=== PATIENT | female | born 1960 | race Caucasian/White ===

== ENCOUNTER 2017-12-25 13:20 | Outpatient (CLI) | END 2017-12-25 13:21 | disposition home or self-care (01) | LOC: FCC-LAB 13:20 | PROVIDERS: ATTEND Nurse Practitioner Family | DX: R11.0 Nausea (principal); R10.32 Left lower quadrant pain; Z79.899 Other long term (current) drug therapy | CPT/HCPCS: 36415; 80053; 80061; 81001; 84439; 84443; 85025 ==

== ENCOUNTER 2017-12-27 13:16 | Outpatient (CLI) ==
--- NOTE | 2017-12-27 13:57 | DI ---
EXAM: Radiographs, abdomen HISTORY: Left lower quadrant pain. COMPARISON: None available. TECHNIQUE: Supine and upright views. FINDINGS: Air and stool noted throughout the colon, including the rectum. No dilated bowel loops ar e seen. No air-fluid levels or free air identified. Clips seen in the right upper abdomen. Phlebol iths noted in the pelvis. Lung bases are clear. No acute osseous abnormality identified. IMPRESSION: No acute radiographic abnormality of the abdomen.
== END 2017-12-27 13:17 | disposition home or self-care (01) ==
LOC: RAD 13:16
PROVIDERS: ATTEND Nurse Practitioner Family
DX: R10.32 Left lower quadrant pain (principal)

== ENCOUNTER 2017-12-31 10:02 | Outpatient (CLI) | END 2017-12-31 10:03 | disposition home or self-care (01) | LOC: RAD 10:02 | PROVIDERS: ATTEND Nurse Practitioner Family | DX: Z12.31 Encounter for screening mammogram for malignant neoplasm of breast (principal) | CPT/HCPCS: 77067 ==

== ENCOUNTER 2018-01-02 09:22 | Outpatient (CLI) ==
--- NOTE | 2018-01-02 10:36 | US ---
EXAM: Thyroid ultrasound History: Thyroid disease, thyroid nodules. Technique: Multiple sonographic images through the thyroid gland were obtained. Color duplex Dopple r was used to interrogate vascular flow. Findings: The right lobe of the thyroid measures 3.6 cm x 1.2 cm x 1.0 cm and demonstrates the 2 mm benign cyst . The thyroid isthmus measures 0.2 cm in thickness. The left lobe of the thyroid measures 3.1 cm x 1.1 cm x 0.7 cm and demonstrates the 0.8 cm complex no dule. No extrathyroidal masses are identified. Thyroid gland is not hypervascular. Impression: Bilateral thyroid nodules. Recommend follow-up ultrasound in 6 months.
== END 2018-01-02 09:23 | disposition home or self-care (01) ==
LOC: RAD 09:22
PROVIDERS: ATTEND Nurse Practitioner Family
DX: Z86.39 Personal history of other endocrine, nutritional and metabolic disease (principal)

== ENCOUNTER 2018-01-17 11:47 | Outpatient (CLI) ==
--- NOTE | 2018-01-17 13:37 | DI ---
EXAM: Three views of the right shoulder. History: Right shoulder pain. Findings: No acute fracture or dislocation. No abnormal calcifications or radiopaque foreign bodies . Joint spaces are preserved. Impression: No acute osseous abnormality.
== END 2018-01-17 11:48 | disposition home or self-care (01) ==
LOC: RAD 11:47
PROVIDERS: ATTEND Nurse Practitioner Family
DX: M25.50 Pain in unspecified joint (principal); M25.511 Pain in right shoulder; T14.90XA Injury, unspecified, initial encounter; W57.XXXA Bitten or stung by nonvenomous insect and other nonvenomous arthropods, initial encounter
CPT/HCPCS: 36415; 84439; 84443; 86038; 86430; 86617; 86664; 86757; 87798

== ENCOUNTER 2018-02-04 10:46 | Outpatient (CLI) | END 2018-02-04 10:47 | disposition home or self-care (01) | LOC: FCC-LAB 10:46 | PROVIDERS: ATTEND Nurse Practitioner Family | DX: E03.9 Hypothyroidism, unspecified (principal) | CPT/HCPCS: 36415; 84439; 84443 ==

== ENCOUNTER 2018-03-17 10:41 | Outpatient (CLI) | END 2018-03-17 10:42 | disposition home or self-care (01) | LOC: FCC-LAB 10:41 | PROVIDERS: ATTEND Nurse Practitioner Family | DX: E03.9 Hypothyroidism, unspecified (principal) | CPT/HCPCS: 36415; 84439; 84443 ==

== ENCOUNTER 2018-03-24 11:40 | Outpatient (CLI) ==
--- NOTE | 2018-03-24 14:48 | DI ---
EXAM: Three views of the right foot HISTORY: Right foot pain. COMPARISON: None FINDINGS: There is no lytic or blastic lesion. There is a plantar are heal spur measuring 0.5 cm. J oint spaces are unremarkable. There is degenerative disease of the first MTP joint. There is no lyt ic or blastic lesion. The soft tissues are unremarkable. IMPRESSION: 1. No acute abnormality or displaced fracture of the right foot. 2. 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
== END 2018-03-24 11:41 | disposition home or self-care (01) ==
LOC: RAD 11:40
PROVIDERS: ATTEND Emergency Medicine
DX: M79.671 Pain in right foot (principal)

== ENCOUNTER 2018-04-21 08:57 | Outpatient (CLI) | END 2018-04-21 08:58 | disposition home or self-care (01) | LOC: LAB 08:57 | PROVIDERS: ATTEND Emergency Medicine | DX: E03.9 Hypothyroidism, unspecified (principal) | CPT/HCPCS: 36415; 84443 ==

== ENCOUNTER 2018-07-03 20:24 | Emergency (ER) ==
[2018-07-03 20:34] VITALS: BP 111/76; TEMP 98.7; BMI 27.8
--- NOTE | 2018-07-03 20:41 | ED.PDOC ---
General ED Provider: Dr. 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 The pain got worse this afternoon. Has pain with deep breathing. Time Seen by Physician: 20:40 Mode of Arrival: Walk-In Information Source: Patient Primary Care Provider: GIANNI OROZCO Nursing and Triage Documentation Reviewed and Agree: Yes Does patient meet sepsis criteria?: No System Inflammatory Response Syndrome: Not Applicable Sepsis Protocol: For patient's 13 years and over: Temp is 96.8 and below OR 101 and greater Pulse >90 BPM Resp >20/minute Acutely Altered Mental Status Are patient's symptoms suggestive of a new infection, such as: -Pneumonia -Skin, Soft Tissue -Endocarditis -UTI -Bone, Joint Infection -Implantable Device -Acute Abdominal Infection -Wound Infection -Meningitis -Blood Stream Catheter Infection -Unknown Review of Systems - Review Of Systems Constitutional: Reports: No symptoms Eyes: Reports: No symptoms Ears, Nose, Mouth, Throat: Reports: No symptoms Respiratory: Reports: No symptoms Cardiac: Reports: Chest pain (left chest wall. ) GI: Reports: No symptoms : Reports: No symptoms Musculoskeletal: Reports: No symptoms Skin: Reports: No symptoms Neurological: Reports: No symptoms Endocrine: Reports: No symptoms Hematologic/Lymphatic: Reports: No symptoms All Other Systems: Reviewed and Negative Past Medical History - Past Medical History Previously Healthy: Yes Endocrine: Reports: Hypothyroid Cardiovascular: Reports: None, Other (cardiac arrythmia ) Respiratory: Reports: None Hematological: Reports: None Gastrointestinal: Reports: None Genitourinary: Reports: Kidney stones Neuro/Psych: Reports: Migraine Musculoskeletal: Reports: None Cancer: Reports: None Last Menstrual Period: na - Surgical History General Surgical History: Reports: Hysterectomy, Cholecystectomy, Orthopedic ( left knee surgery), Other (cyst on forehaead ) - Family History Family History: Reports: None - Social History Smoking Status: Never smoker Hx Substance Use: No Alcohol Screening: None - Immunizations Tetanus Shot up to Date: Yes Physical Exam - Physical Exam Appearance: Ill-appearing Ill-appearing: Mild Pain Distress: Severe Neck: Supple Respiratory: Airway patent Cardiovascular: RRR, Pulses normal, No rub, No murmur GI/: Soft, Nontender, No masses, Bowel sounds normal, No Organomegaly Musculoskeletal: Normal strength (left lower chest wall tenderness to palpation. ) Skin: Warm Neurological: Sensation intact, Motor intact, Reflexes intact, Cranial nerves intact, Alert, Oriented Psychiatric: Anxious Interpretation - Radiology Interpretation Radiology Interpretation By: Radiologist Radiology Results: Positive (minimally displaced farctue of the 8th, 9th and 10th) Exam Interpreted: CT Scan Critical Care Note - Critical Care Note Total Time (mins): 0 Course - Course Orders, Labs, Meds: Orders Category Date Time Status Butorphanol Tartrate [Stadol] MEDS 07/03/18 20:51 Discontinued 2 mg IVP ONCE STA CT CHEST W/O CONTRAST Stat RADS 07/03/18 20:51 Completed Medications Discontinued Medications Generic Name Dose Route Start Last Admin Trade Name Freq PRN Reason Stop Dose Admin Butorphanol Tartrate 2 mg 07/03/18 20:51 07/03/18 21:01 Stadol IVP 07/03/18 20:52 2 mg ONCE STA Administration Vital Signs: Temp Pulse Resp BP Pulse Ox 07/03/18 20:27 98.7 F 73 16 111/76 95 Departure - Departure Time of Disposition: 21:49 Disposition: HOME SELF-CARE Discharge Problem: Ribs, multiple fractures Qualifiers: Encounter type: initial encounter Fracture type: closed Laterality: left Qualified Code(s): S22.42XA - Multiple fractures of ribs, left side, initial encounter for closed fracture Instructions: Rib Fracture (ED) Condition: Stable Pt referred to PMD for follow-up: Yes IPMP verified?: No Additional Instructions: Follow up with PCP in 2-3 days for left renal Ultrasound due to abnormal findings on CT Take pain medications as prescribed Prescriptions: Hydrocodone Bit/Acetaminophen [[place] 5-325] 1 each PO Q6HR PRN #20 tablet PRN Reason: severe pain Allergies/Adverse Reactions: Allergies hydromorphone HCl [From Dilaudid] Allergy (Severe, Unverified 12/24/17 14:26) CP/sweats erythromycin base Allergy (Intermediate, Unverified 12/24/17 14:26) rash/SOB latex Adverse Reaction (Verified 07/03/18 20:59) Home Medications: Ambulatory Orders Rizatriptan Benzoate [Maxalt] 10 mg PO DIRECTED PRN 12/24/17 Hydrocodone Bit/Acetaminophen [[place] 5-325] 1 each PO Q6HR PRN #20 tablet 11/08/ 18 Disposition Discussed With: Patient, Family
[2018-07-03] MEDS ORDERED: STADOL IVP STA (20:51)
--- NOTE | 2018-07-03 21:36 | CT ---
Exam: CT of the chest without intravenous contrast. 3-D MIP reformatted images were performed of the ribs. Comparison: None available. Reason for exam: Left lower rib pain. FINDINGS: No pneumothorax, pleural effusion, or focal consolidation. There is mild basilar atelecta sis. The heart is not enlarged. The aorta is normal in course and caliber. Prominence of the partially imaged right renal collecting system. The gallbladder has been removed. There is subtle appearing angulation of the anterior eighth, ninth, and tenth ribs that may represent a minimally displaced rib fractures. Impression: 1. Likely minimally-displaced anterior eighth, ninth, and tenth rib fractures. 2. Partially imaged upper abdomen with prominent appearing right renal collecting system. Imaging f indings are concerning for hydronephrosis/pelviectasis. Further evaluation is recommended. 3. No pneumothorax, pleural effusion, or focal consolidation
== END 2018-07-03 22:15 | disposition home or self-care (01) ==
LOC: ED 20:24
DX: S22.42XA Multiple fractures of ribs, left side, initial encounter for closed fracture (principal)
CPT/HCPCS: 96372; 99282

== ENCOUNTER 2018-09-24 17:44 | Emergency (ER) ==
[2018-09-24 17:48] VITALS: BP 116/73; TEMP 98.7; BMI 29.5
--- NOTE | 2018-09-24 18:31 | ED.PDOC ---
General ED Provider: Dr. STACY HURD Chief Complaint: Knee Pain/Injury Stated Complaint: KNEE PAIN RIGHT Time Seen by Physician: 18:10 (SEEN WITH AMIRAH AT ALL TIMES ) Mode of Arrival: Wheelchair Information Source: Patient Exam Limitations: No limitations Primary Care Provider: GIANNI OROZCO Nursing and Triage Documentation Reviewed and Agree: Yes Does patient meet sepsis criteria?: No System Inflammatory Response Syndrome: Not Applicable Sepsis Protocol: For patient's 13 years and over: Temp is 96.8 and below OR 101 and greater Pulse >90 BPM Resp >20/minute Acutely Altered Mental Status Are patient's symptoms suggestive of a new infection, such as: -Pneumonia -Skin, Soft Tissue -Endocarditis -UTI -Bone, Joint Infection -Implantable Device -Acute Abdominal Infection -Wound Infection -Meningitis -Blood Stream Catheter Infection -Unknown Musculoskeletal Complaint Exam - Knee Pain Complaint/Exam Mechanism of Injury: Reports: Trauma Onset/Duration: 1 WEEK AGO Symptoms Are: Still present Onset of Pain: Reports: Immediate Initial Severity: Moderate Current Severity: Moderate Location: Reports: Discrete (POST RIGHT KNEE ) Character: Reports: Dull, Aching Alleviating: Reports: Rest Aggravating: Reports: Movement Associated Signs and Symptoms: Denies: Swelling, Redness, Bruising, Fever, Weakness, Numbness, Tingling Able to Bear Weight: No Septic Arthritis Risk Factors: Reports: None Gout Risk Factors: Reports: None Knee Findings: Present: Swelling Tenderness: Present: Pre-patellar Arvind Test Positive: Yes Izaiah Test Positive: Yes Limited Range of Motion: Present: Active, Passive, Flexion, Extension, Patellar apprehension Differential Diagnoses: Closed Fracture, Internal Derangement, Sprain, Strain Review of Systems - Review Of Systems Constitutional: Reports: No symptoms Eyes: Reports: No symptoms Ears, Nose, Mouth, Throat: Reports: No symptoms Respiratory: Reports: No symptoms Cardiac: Reports: No symptoms GI: Reports: No symptoms : Reports: No symptoms Musculoskeletal: Reports: Joint pain (KNEE PAIN) Skin: Reports: No symptoms Neurological: Reports: No symptoms Endocrine: Reports: No symptoms Hematologic/Lymphatic: Reports: No symptoms All Other Systems: Reviewed and Negative Past Medical History - Past Medical History Previously Healthy: Yes Endocrine: Reports: Hypothyroid Cardiovascular: Reports: None, Other (cardiac arrythmia ) Respiratory: Reports: None Hematological: Reports: None Gastrointestinal: Reports: None Genitourinary: Reports: Kidney stones Neuro/Psych: Reports: Migraine Musculoskeletal: Reports: None Cancer: Reports: None Last Menstrual Period: none - Surgical History General Surgical History: Reports: Hysterectomy, Cholecystectomy, Orthopedic ( left knee surgery), Other (cyst on forehaead ) - Family History Family History: Reports: None - Social History Smoking Status: Never smoker Hx Substance Use: No Alcohol Screening: None Physical Exam - Physical Exam Appearance: Well-appearing, No pain distress, Well-nourished Eyes: DANILO, EOMI, Conjunctiva clear ENT: Ears normal, Nose normal, Oropharynx normal Respiratory: Airway patent, Breath sounds clear, Breath sounds equal, Respirations nonlabored Cardiovascular: RRR, Pulses normal, No rub, No murmur GI/: Soft, Nontender, No masses, Bowel sounds normal, No Organomegaly Musculoskeletal: Normal strength, No edema, No calf tenderness, Limited ROM ( RIGHT KNEE PAIN ) Skin: Warm, Dry, Normal color Neurological: Sensation intact, Motor intact, Reflexes intact, Cranial nerves intact, Alert, Oriented Psychiatric: Affect appropriate, Mood appropriate Critical Care Note - Critical Care Note Total Time (mins): 0 Course - Course Orders, Labs, Meds: Orders Category Date Time Status CT KNEE RIGHT WITHOUT CONTRAST Stat RADS 09/24/18 18:28 Ordered Vital Signs: Temp Pulse Resp BP Pulse Ox 09/24/18 17:45 98.7 F 52 L 20 116/73 97 Departure - Departure Time of Disposition: 18:32 (D/C INSTRUCTION GIVEN WITH LILI PRESENT WE DISCUSSED THE POTENTIAL INJURIES INVOLVING HER RIGHT KNEE ) Disposition: HOME SELF-CARE Discharge Problem: Knee pain, Injury of knee Instructions: Knee Pain (ED) Condition: Good Pt referred to PMD for follow-up: Yes IPMP verified?: No Additional Instructions: Please call your Family Physician as soon as possible to schedule a follow-up appointment. KEEP KNEE SPLINT ON USE CRUTCHES AT ALL TIME . I THINK YOU COULD BENEFIT FROM AN M.R.I . OFTEN TORN SOFT TISSUE WILL NOT SHOW UP ON XRAY . MRI IS THE TEST OF THE CHOICE . Allergies/Adverse Reactions: Allergies hydromorphone HCl [From Dilaudid] Allergy (Severe, Verified 09/24/18 17:48) CP/sweats erythromycin base Allergy (Intermediate, Verified 09/24/18 17:48) rash/SOB latex Adverse Reaction (Verified 09/24/18 17:48) Home Medications: Ambulatory Orders Rizatriptan Benzoate [Maxalt] 10 mg PO DIRECTED PRN 12/24/17
[2018-09-24] MEDS ORDERED: TORADOL IM STA (18:44)
--- NOTE | 2018-09-24 19:15 | CT ---
EXAM: CT right knee without contrast HISTORY: Right knee injury and heard a pop. COMPARISON: None TECHNIQUE: Serial axial images of the right knee were obtained without contrast. These were viewed in multiple planes. FINDINGS: The patella is normal. The femur is unremarkable. The fibula is normal. The tibia is nor mal. There is nodular sclerotic density in the distal femur. There is no periosteal reaction. Ther e is no lytic lesion. There is no displaced fracture or dislocation. The soft tissues demonstrate a small effusion. Musculature is unremarkable. The PCL and ACL are unremarkable. The quadriceps ten don and patellar tendon are unremarkable. IMPRESSION: 1. Small knee effusion. 2. No acute fracture or dislocation of the right knee with sclerotic density in the distal femur mos t consistent with an enchondroma.
== END 2018-09-24 19:34 | disposition home or self-care (01) ==
LOC: ED 17:44
DX: M25.561 Pain in right knee (principal)
CPT/HCPCS: 96372; 99282

== ENCOUNTER 2018-09-26 14:11 | Outpatient (CLI) | END 2018-09-26 14:31 | disposition short-term general hospital (02) | LOC: AMBL 14:11 | PROVIDERS: ATTEND Emergency Medicine | DX: S49.91XA Unspecified injury of right shoulder and upper arm, initial encounter (principal); W10.9XXA Fall (on) (from) unspecified stairs and steps, initial encounter ==